=== PATIENT | female | born 1955 | race Caucasian/White ===

== ENCOUNTER → 2019-02-07 | Outpatient (CLI) | payer OTHER, SELFPAY ==
[2019-02-07 13:25] LABS: AST(SGOT) 20 U/L (15-37); Alanine Aminotransfer ALT/SGPT 38 U/L (13-56); Albumin, Serum 3.7 g/dL (3.2-5.0); Alkaline Phosphatase 145 U/L (45-117); Bilirubin, Direct 0.08 mg/dL (0.00-0.30); Globulin 3.1 g/dL (2.2-4.2); Protein, Total 6.8 g/dL (6.4-8.2)
[2019-02-11 15:45] LABS: Alpha Antitrypsin Serum 111 mg/dL (90-200)
== END | disposition home or self-care (01) ==
LOC: LABSPEC 12:32
DX: K76.9 Liver disease, unspecified (principal)
CPT/HCPCS: 80076; 82103; 82104

== ENCOUNTER → 2019-08-06 | Outpatient (CLI) | payer OTHER, SELFPAY ==
[2019-08-06 12:16] LABS: Vitamin D,25 Hydroxy 14.8 ng/mL
== END | disposition home or self-care (01) ==
LOC: LABSPEC 09:50
PROVIDERS: Visit Provider Internal Medicine
DX: E55.9 Vitamin D deficiency, unspecified (principal)
CPT/HCPCS: 82306

== ENCOUNTER → 2020-07-20 | Outpatient (CLI) | payer OTHER, SELFPAY ==
[2020-07-20 11:00] LABS: PTHIN 133.5 pg/mL (18.4-80.1)
[2020-07-20 11:04] LABS: Vitamin D,25 Hydroxy 43.9 ng/mL
== END | disposition home or self-care (01) ==
LOC: LABSPEC 07-22 13:00
PROVIDERS: PCP Student in an Organized Health Care Education/Training Program; Visit Provider Student in an Organized Health Care Education/Training Program
DX: E55.9 Vitamin D deficiency, unspecified (principal); N25.81 Secondary hyperparathyroidism of renal origin; R74.8 Abnormal levels of other serum enzymes; Z13.6 Encounter for screening for cardiovascular disorders
CPT/HCPCS: 36415; 82306; 83970

== ENCOUNTER → 2020-09-22 | Outpatient (CLI) | payer OTHER, SELFPAY ==
[2020-09-22 09:21] LABS: PTHIN 121.2 pg/mL (18.4-80.1)
[2020-09-22 09:23] LABS: AST(SGOT) 18 U/L (15-37); Alanine Aminotransfer ALT/SGPT 37 U/L (13-56); Albumin, Serum 3.6 g/dL (3.2-5.0); Alkaline Phosphatase 132 U/L (45-117); Anion Gap 3 (5-15); BUN 15 mg/dL (7-18); Calcium,Total 8.7 mg/dL (8.5-10.1); Chloride 107 mmol/L (98-107); EST Glomerular Filtration Rate 59 mL/min (>60); Est Glom Filt Rate - Afr Amer 71 mL/min (>60); Globulin 3.7 g/dL (2.2-4.2); Glucose 93 mg/dL (74-106); Magnesium 2.5 mg/dL (1.6-2.6); Phosphorus 3.2 mg/dL (2.5-4.9); Potassium 3.8 mmol/L (3.5-5.1); Protein, Total 7.3 g/dL (6.4-8.2); Sodium Level 139 mmol/L (136-145)
== END | disposition home or self-care (01) ==
LOC: LABSPEC 08:53
PROVIDERS: PCP Student in an Organized Health Care Education/Training Program; Referring Provider Student in an Organized Health Care Education/Training Program; Visit Provider Student in an Organized Health Care Education/Training Program
DX: R79.89 Other specified abnormal findings of blood chemistry (principal); R74.8 Abnormal levels of other serum enzymes
CPT/HCPCS: 80053; 82306; 82330; 83735; 83970; 84100

== ENCOUNTER → 2021-01-13 | Outpatient (CLI) | payer OTHER, SELFPAY ==
[2021-01-13 09:47] LABS: Progesterone Level 4.93 ng/mL (See Comment); Vitamin D,25 Hydroxy 30.4 ng/mL
[2021-01-13 09:52] LABS: Albumin, Serum 3.6 g/dL (3.2-5.0); BUN 18 mg/dL (7-18); Calcium,Total 8.9 mg/dL (8.5-10.1); Chloride 102 mmol/L (98-107); EST Glomerular Filtration Rate 59 mL/min (>60); Est Glom Filt Rate - Afr Amer 71 mL/min (>60); Estradiol 21.1 pg/mL; Free T3 2.3 pg/mL (2.18-3.98); Glucose 88 mg/dL (74-106); Phosphorus 3.4 mg/dL (2.5-4.9); Potassium 3.7 mmol/L (3.5-5.1); Sodium Level 140 mmol/L (136-145); T4 Free Direct 0.78 ng/dL (0.76-1.46); Thyroid Stim Hormone (TSH) 1.45 uIU/mL (0.358-3.74)
[2021-01-13 11:19] LABS: PTHIN 66.4 pg/mL (18.4-80.1)
== END | disposition home or self-care (01) ==
PROVIDERS: PCP Student in an Organized Health Care Education/Training Program; Visit Provider Student in an Organized Health Care Education/Training Program
DX: E21.3 Hyperparathyroidism, unspecified (principal)
CPT/HCPCS: 80069; 82306; 82670; 83970; 84144; 84403; 84439; 84443; 84481

== ENCOUNTER → 2021-04-05 | Outpatient (CLI) | payer OTHER, SELFPAY ==
[2021-04-05 09:56] LABS: PTHIN 80.9 pg/mL (18.4-80.1); Progesterone Level 4.84 ng/mL (See Comment); Vitamin D,25 Hydroxy 31.8 ng/mL
[2021-04-05 10:01] LABS: ALB/GLOB Ratio 0.9 RATIO (0.9-2.4); AST(SGOT) 21 U/L (15-37); Alanine Aminotransfer ALT/SGPT 31 U/L (13-56); Albumin, Serum 3.4 g/dL (3.2-5.0); Alkaline Phosphatase 119 U/L (45-117); Anion Gap 10 (5-15); BUN 14 mg/dL (7-18); BUN/Creat Ratio 13.2 RATIO (10-20); Calcium,Total 9.1 mg/dL (8.5-10.1); Chloride 104 mmol/L (98-107); Creatinine, Serum 1.06 mg/dL (0.55-1.02); EST Glomerular Filtration Rate 55 mL/min (>60); Est Glom Filt Rate - Afr Amer 67 mL/min (>60); Free T3 2.9 pg/mL (2.18-3.98); Globulin 3.8 g/dL (2.2-4.2); Glucose 99 mg/dL (74-106); Magnesium 2.4 mg/dL (1.6-2.6); Phosphorus 2.8 mg/dL (2.5-4.9); Protein, Total 7.2 g/dL (6.4-8.2); Sodium Level 140 mmol/L (136-145); Thyroid Stim Hormone (TSH) 1.16 uIU/mL (0.358-3.74)
== END | disposition home or self-care (01) ==
LOC: LABSPEC 09:23
PROVIDERS: PCP Student in an Organized Health Care Education/Training Program; Referring Provider Student in an Organized Health Care Education/Training Program; Visit Provider Student in an Organized Health Care Education/Training Program
DX: E21.3 Hyperparathyroidism, unspecified (principal); E55.9 Vitamin D deficiency, unspecified; E83.42 Hypomagnesemia
CPT/HCPCS: 80053; 82306; 82670; 83735; 83970; 84100; 84144; 84443; 84481

== ENCOUNTER 2021-07-19 12:25 | Outpatient (CLI) | payer OTHER, SELFPAY ==
[2021-07-19 11:04] LABS: PTHIN 58.9 pg/mL (18.4-80.1)
[2021-07-19 11:08] LABS: Vitamin D,25 Hydroxy 46.2 ng/mL
[2021-07-19 11:34] LABS: ALB/GLOB Ratio 1.1 RATIO (0.9-2.4); AST(SGOT) 18 U/L (15-37); Alanine Aminotransfer ALT/SGPT 31 U/L (13-56); Albumin, Serum 3.8 g/dL (3.2-5.0); Alkaline Phosphatase 130 U/L (45-117); Anion Gap 7 (5-15); BUN 22 mg/dL (7-18); BUN/Creat Ratio 17.7 RATIO (10-20); Calcium,Total 9.3 mg/dL (8.5-10.1); Chloride 103 mmol/L (98-107); Creatinine, Serum 1.24 mg/dL (0.55-1.02); EST Glomerular Filtration Rate 46 mL/min (>60); Est Glom Filt Rate - Afr Amer 56 mL/min (>60); Estradiol 48.2 pg/mL; Free T3 3.1 pg/mL (2.18-3.98); Globulin 3.5 g/dL (2.2-4.2); Glucose 97 mg/dL (74-106); Potassium 4.1 mmol/L (3.5-5.1); Protein, Total 7.3 g/dL (6.4-8.2); Sodium Level 137 mmol/L (136-145); T4 Free Direct 0.82 ng/dL (0.76-1.46); Thyroid Stim Hormone (TSH) 1.19 uIU/mL (0.358-3.74)
[2021-07-21 15:08] LABS: Alkaline Phosphatase, Serum 132 IU/L (44-121); Bone Fraction 22 % (14-68); Liver Fraction 74 % (18-85)
[2021-07-21 16:49] LABS: Intestinal Fraction 4 % (0-18)
== END 2021-07-19 23:59 | disposition home or self-care (01) ==
LOC: LAB.FUTURE 12:25
PROVIDERS: Visit Provider Internal Medicine Endocrinology, Diabetes & Metabolism
DX: E03.8 Other specified hypothyroidism (principal); E21.1 Secondary hyperparathyroidism, not elsewhere classified; N95.1 Menopausal and female climacteric states; E55.9 Vitamin D deficiency, unspecified; E83.39 Other disorders of phosphorus metabolism
CPT/HCPCS: 36415; 80053; 82306; 82670; 83970; 84075; 84080; 84439; 84443; 84481

== ENCOUNTER 2021-08-17 12:56 | Outpatient (CLI) | payer OTHER, SELFPAY ==
[2021-08-17 13:39] LABS: Anion Gap 7 (5-15); BUN 12 mg/dL (7-18); BUN/Creat Ratio 11.4 RATIO (10-20); Calcium,Total 8.6 mg/dL (8.5-10.1); Chloride 105 mmol/L (98-107); Creatinine, Serum 1.05 mg/dL (0.55-1.02); EST Glomerular Filtration Rate 56 mL/min (>60); Est Glom Filt Rate - Afr Amer 67 mL/min (>60); Glucose 80 mg/dL (74-106); Potassium 3.9 mmol/L (3.5-5.1); Sodium Level 137 mmol/L (136-145)
== END 2021-08-17 23:59 | disposition home or self-care (01) ==
PROVIDERS: Referring Provider Student in an Organized Health Care Education/Training Program; Visit Provider Student in an Organized Health Care Education/Training Program
DX: E21.1 Secondary hyperparathyroidism, not elsewhere classified (principal); I10 Essential (primary) hypertension
CPT/HCPCS: 80048

== ENCOUNTER 2021-08-22 08:28 | Outpatient (CLI) | payer OTHER, SELFPAY ==
[2021-08-22 09:54] LABS: 24HR. Urine Creatinine 1.19 g/24 HR (0.70-1.90)
[2021-08-29 21:38] LABS: 5-HIAA, UR 3.6 mg/L (Undefined)
== END 2021-08-22 23:59 | disposition home or self-care (01) ==
LOC: LABSPEC 08:29
PROVIDERS: Referring Provider Internal Medicine Endocrinology, Diabetes & Metabolism; Visit Provider Internal Medicine Endocrinology, Diabetes & Metabolism
DX: E21.1 Secondary hyperparathyroidism, not elsewhere classified (principal)
CPT/HCPCS: 81050; 82570; 83497

== ENCOUNTER → 2021-12-27 | Outpatient (CLI) | payer OTHER, SELFPAY ==
[2021-12-27 15:29] LABS: Hematocrit 37.8 % (37-47); Hemoglobin 12.4 g/dL (12.0-15.0); Mean Corp Hgb Conc 32.8 g/dL (32-36); Mean Corpuscular Hgb 32.6 pg (27.0-32.0); Mean Corpuscular Volume 99.5 fL (81-99); Mean Platelet Vol. 10.6 fl (6.2-12.0); Platelet Count 291 K/mm3 (150-450); RBC Distribution Width CV 12.3 % (11.6-14.6); RBC Distribution Width SD 45.1 fl (35.1-43.9); White Blood Count 8.4 K/mm3 (4.4-11.0)
[2021-12-27 15:59] LABS: PTHIN 77.9 pg/mL (18.4-80.1)
[2021-12-27 16:18] LABS: Microalbumin,Random Urine < 5.0 mg/L (NO RANGE EST.)
[2021-12-27 17:23] LABS: Hepatitis C Antibody Non-Reactive (Nonreactive); Progesterone Level 2.58 ng/mL (See Comment); Vitamin D,25 Hydroxy 57.9 ng/mL
[2021-12-27 21:44] LABS: BUN 15 mg/dL (7-18); BUN/Creat Ratio 13.5 RATIO (10-20); Creatinine, Serum 1.11 mg/dL (0.55-1.02); Glucose 65 mg/dL (74-106)
[2021-12-27 21:45] LABS: ALB/GLOB Ratio 1.1 RATIO (0.9-2.4); AST(SGOT) 17 U/L (15-37); Albumin, Serum 3.7 g/dL (3.2-5.0); Alkaline Phosphatase 97 U/L (45-117); Calcium,Total 8.6 mg/dL (8.5-10.1); Globulin 3.4 g/dL (2.2-4.2); Phosphorus 3.1 mg/dL (2.5-4.9); Protein, Total 7.1 g/dL (6.4-8.2)
[2021-12-27 21:46] LABS: Alanine Aminotransfer ALT/SGPT 22 U/L (13-56); Cholesterol 148 mg/dL (200); Magnesium 2.2 mg/dL (1.6-2.6); Sodium Level 135 mmol/L (136-145); Triglycerides 219 mg/dL; Very Low Density Lipoprotein 44 mg/dL (5-40)
[2021-12-27 21:47] LABS: Anion Gap 10 (5-15); Chloride 101 mmol/L (98-107); Free T3 2.4 pg/mL (2.18-3.98); High Density Lipoprotein 40 mg/dL; Potassium 3.4 mmol/L (3.5-5.1); Thyroid Stim Hormone (TSH) 0.85 uIU/mL (0.358-3.74)
[2021-12-27 22:06] LABS: EST Glomerular Filtration Rate 52 mL/min (>60); Est Glom Filt Rate - Afr Amer 63 mL/min (>60); Estradiol 14.6 pg/mL
[2021-12-28 14:19] LABS: Bilirubin, Direct 0.07 mg/dL (0.00-0.30)
[2021-12-30 22:20] LABS: Anti-Mitochondrial AB <20.0 Units (0.0-20.0)
== END | disposition home or self-care (01) ==
LOC: LABSPEC 15:10
DX: E03.8 Other specified hypothyroidism (principal); N25.81 Secondary hyperparathyroidism of renal origin; N95.1 Menopausal and female climacteric states; E55.9 Vitamin D deficiency, unspecified; I10 Essential (primary) hypertension; R74.8 Abnormal levels of other serum enzymes; Z11.59 Encounter for screening for other viral diseases
CPT/HCPCS: 80053; 80061; 82043; 82248; 82306; 82570; 82670; 83516; 83735; 83970; 84100; 84144; 84403; 84443; 84481; 85027; 86803

== ENCOUNTER → 2022-01-20 | Outpatient (CLI) | payer OTHER, SELFPAY ==
[2022-01-20 15:39] LABS: ALB/GLOB Ratio 1.1 RATIO (0.9-2.4); AST(SGOT) 17 U/L (15-37); Alanine Aminotransfer ALT/SGPT 23 U/L (13-56); Albumin, Serum 3.7 g/dL (3.2-5.0); Alkaline Phosphatase 104 U/L (45-117); Anion Gap 10 (5-15); BUN 22 mg/dL (7-18); BUN/Creat Ratio 17.7 RATIO (10-20); Calcium,Total 9.1 mg/dL (8.5-10.1); Chloride 99 mmol/L (98-107); Creatinine, Serum 1.24 mg/dL (0.55-1.02); EST Glomerular Filtration Rate 46 mL/min (>60); Est Glom Filt Rate - Afr Amer 55 mL/min (>60); Globulin 3.4 g/dL (2.2-4.2); Glucose 98 mg/dL (74-106); Protein, Total 7.1 g/dL (6.4-8.2); Sodium Level 132 mmol/L (136-145); T4 Free Direct 0.96 ng/dL (0.76-1.46); Thyroid Stim Hormone (TSH) 1.03 uIU/mL (0.358-3.74)
== END | disposition home or self-care (01) ==
LOC: LABSPEC 14:50
PROVIDERS: PCP Student in an Organized Health Care Education/Training Program; Referring Provider Student in an Organized Health Care Education/Training Program; Visit Provider Student in an Organized Health Care Education/Training Program
DX: E21.1 Secondary hyperparathyroidism, not elsewhere classified (principal); E87.6 Hypokalemia
CPT/HCPCS: 80053; 84439; 84443

== ENCOUNTER → 2022-07-17 | Outpatient (CLI) | payer OTHER, SELFPAY ==
[2022-07-17 11:57] LABS: Microalbumin,Random Urine 8.7 mg/L (NO RANGE EST.)
== END | disposition home or self-care (01) ==
LOC: LABSPEC 11:15
PROVIDERS: PCP Nurse Practitioner Women's Health; Referring Provider Student in an Organized Health Care Education/Training Program; Visit Provider Student in an Organized Health Care Education/Training Program
DX: I10 Essential (primary) hypertension (principal)
CPT/HCPCS: 82043

== ENCOUNTER → 2022-07-18 | Outpatient (CLI) | payer OTHER, SELFPAY ==
[2022-07-18 10:16] LABS: Hematocrit 41.2 % (37-47); Hemoglobin 13.1 g/dL (12.0-15.0); Mean Corp Hgb Conc 31.8 g/dL (32-36); Mean Corpuscular Hgb 32.3 pg (27.0-32.0); Mean Corpuscular Volume 101.5 fL (81-99); Platelet Count 305 K/mm3 (150-450); RBC Distribution Width CV 12.8 % (11.6-14.6); RBC Distribution Width SD 47.9 fl (35.1-43.9); Red Blood Count 4.06 M/mm3 (4.2-5.4); White Blood Count 8.4 K/mm3 (4.4-11.0)
[2022-07-18 10:38] LABS: PTHIN 78.5 pg/mL (18.4-80.1)
[2022-07-18 10:42] LABS: Progesterone Level 6.24 ng/mL (See Comment); Vitamin D,25 Hydroxy 70.1 ng/mL
[2022-07-18 14:40] LABS: ALB/GLOB Ratio 1.1 RATIO (0.9-2.4); AST(SGOT) 15 U/L (15-37); Alanine Aminotransfer ALT/SGPT 21 U/L (13-56); Albumin, Serum 3.7 g/dL (3.2-5.0); Alkaline Phosphatase 92 U/L (45-117); Anion Gap 12 (5-15); BUN 16 mg/dL (7-18); Calcium,Total 8.9 mg/dL (8.5-10.1); Chloride 98 mmol/L (98-107); Cholesterol 141 mg/dL (200); Creatinine, Serum 1.23 mg/dL (0.55-1.02); EST Glomerular Filtration Rate 46 mL/min (>60); Est Glom Filt Rate - Afr Amer 56 mL/min (>60); Estradiol 16.7 pg/mL; Globulin 3.4 g/dL (2.2-4.2); Glucose 69 mg/dL (74-106); High Density Lipoprotein 55 mg/dL; Magnesium 2.2 mg/dL (1.6-2.6); Potassium 3.4 mmol/L (3.5-5.1); Protein, Total 7.1 g/dL (6.4-8.2); Sodium Level 133 mmol/L (136-145); T4 Free Direct 0.91 ng/dL (0.76-1.46); Thyroid Stim Hormone (TSH) 1.05 uIU/mL (0.358-3.74); Triglycerides 147 mg/dL; Very Low Density Lipoprotein 29 mg/dL (5-40)
[2022-07-18 17:13] LABS: Vitamin B12 1142 pg/mL (211-911)
== END | disposition home or self-care (01) ==
LOC: LABSPEC 11:55
PROVIDERS: PCP Nurse Practitioner Women's Health; Referring Provider Student in an Organized Health Care Education/Training Program; Visit Provider Internal Medicine Endocrinology, Diabetes & Metabolism
DX: E21.1 Secondary hyperparathyroidism, not elsewhere classified (principal); E55.9 Vitamin D deficiency, unspecified; E03.9 Hypothyroidism, unspecified; N95.1 Menopausal and female climacteric states; I10 Essential (primary) hypertension; Z13.6 Encounter for screening for cardiovascular disorders
CPT/HCPCS: 36415; 80053; 80061; 82306; 82607; 82670; 82746; 83735; 83970; 84144; 84403; 84439; 84443; 84481; 85027

== ENCOUNTER → 2023-01-15 | Outpatient (CLI) | payer OTHER, SELFPAY ==
[2023-01-15 13:38] LABS: Creatinine, Urine (random) < 13.00 mg/dL (NO RANGE EST.); Microalbumin,Random Urine < 5.0 mg/L (NO RANGE EST.)
== END | disposition home or self-care (01) ==
LOC: LABSPEC 12:43
PROVIDERS: PCP Nurse Practitioner Women's Health; Referring Provider Student in an Organized Health Care Education/Training Program; Visit Provider Student in an Organized Health Care Education/Training Program
DX: R94.4 Abnormal results of kidney function studies (principal)
CPT/HCPCS: 82043; 82570

== ENCOUNTER → 2023-01-18 | Outpatient (CLI) | payer OTHER, SELFPAY ==
[2023-01-18 08:23] LABS: Hematocrit 41.4 % (37-47); Hemoglobin 13.3 g/dL (12.0-15.0); Mean Corp Hgb Conc 32.1 g/dL (32-36); Mean Corpuscular Hgb 32.7 pg (27.0-32.0); Mean Corpuscular Volume 101.7 fL (81-99); Mean Platelet Vol. 9.8 fl (6.2-12.0); Platelet Count 269 K/mm3 (150-450); RBC Distribution Width CV 12.7 % (11.6-14.6); RBC Distribution Width SD 47.8 fl (35.1-43.9); Red Blood Count 4.07 M/mm3 (4.2-5.4); White Blood Count 9.5 K/mm3 (4.4-11.0)
[2023-01-18 09:05] LABS: PTHIN 118.8 pg/mL (18.4-80.1)
[2023-01-18 09:11] LABS: ALB/GLOB Ratio 0.9 RATIO (0.9-2.4); AST(SGOT) 20 U/L (15-37); Alanine Aminotransfer ALT/SGPT 32 U/L (13-56); Albumin, Serum 3.5 g/dL (3.2-5.0); Alkaline Phosphatase 110 U/L (45-117); Anion Gap 6 (5-15); BUN 14 mg/dL (7-18); BUN/Creat Ratio 11.7 RATIO (10-20); Calcium,Total 8.9 mg/dL (8.5-10.1); Chloride 106 mmol/L (98-107); Cholesterol 164 mg/dL (200); EST Glomerular Filtration Rate 47 mL/min (>60); Est Glom Filt Rate - Afr Amer 57 mL/min (>60); Estradiol 57.1 pg/mL; Free T3 2.4 pg/mL (2.18-3.98); Globulin 3.9 g/dL (2.2-4.2); Glucose 105 mg/dL (74-106); High Density Lipoprotein 49 mg/dL; Magnesium 2.2 mg/dL (1.6-2.6); Potassium 4.3 mmol/L (3.5-5.1); Protein, Total 7.4 g/dL (6.4-8.2); Sodium Level 138 mmol/L (136-145); T4 Free Direct 0.73 ng/dL (0.76-1.46); Thyroid Stim Hormone (TSH) 1.28 uIU/mL (0.358-3.74); Triglycerides 186 mg/dL; Very Low Density Lipoprotein 37 mg/dL (5-40)
[2023-01-18 09:12] LABS: Progesterone Level 3.76 ng/mL (See Comment)
[2023-01-19 04:07] LABS: DHEA Sulfate 27.4 ug/dL (20.4-186.6)
== END | disposition home or self-care (01) ==
PROVIDERS: PCP Student in an Organized Health Care Education/Training Program; Referring Provider Nurse Practitioner Women's Health; Visit Provider Nurse Practitioner Women's Health
DX: N95.1 Menopausal and female climacteric states (principal); E21.1 Secondary hyperparathyroidism, not elsewhere classified; E03.8 Other specified hypothyroidism; R53.81 Other malaise; E55.9 Vitamin D deficiency, unspecified; R94.4 Abnormal results of kidney function studies; I10 Essential (primary) hypertension; Z13.6 Encounter for screening for cardiovascular disorders
CPT/HCPCS: 36415; 80053; 80061; 82306; 82627; 82670; 83735; 83970; 84144; 84403; 84439; 84443; 84481; 85027; 82626

== ENCOUNTER → 2023-03-02 | Outpatient (CLI) | payer OTHER, SELFPAY ==
[2023-03-02 13:32] LABS: (24 HR) Urine Calcium 165.1 mg/24 HR (42.0-353.0); 24HR UR TOTAL VOLUME 1300 ml; 24Hr.Lytes Total Volume 1300 mL; Calcium Urine pH Range 1; Sodium 24 HR UR 65 mmol/24h (40-220); Urine Calcium (Random) 12.7 (Not Estab.); Urine Sodium 50 mmol/L (Not Establ.)
== END | disposition home or self-care (01) ==
LOC: LABSPEC 12:23
PROVIDERS: PCP Student in an Organized Health Care Education/Training Program; Referring Provider Internal Medicine Endocrinology, Diabetes & Metabolism; Visit Provider Internal Medicine Endocrinology, Diabetes & Metabolism
DX: E21.1 Secondary hyperparathyroidism, not elsewhere classified (principal); N18.31 Chronic kidney disease, stage 3a
CPT/HCPCS: 82340; 82570; 84300

== ENCOUNTER → 2023-03-12 | Outpatient (CLI) | payer OTHER, SELFPAY ==
[2023-03-12 13:01] LABS: Anion Gap 7 (5-15); BUN 15 mg/dL (7-18); BUN/Creat Ratio 10.6 RATIO (10-20); Calcium,Total 8.7 mg/dL (8.5-10.1); Chloride 105 mmol/L (98-107); Creatinine, Serum 1.42 mg/dL (0.55-1.02); EST Glomerular Filtration Rate 39 mL/min (>60); Est Glom Filt Rate - Afr Amer 47 mL/min (>60); Glucose 59 mg/dL (74-106); Potassium 3.9 mmol/L (3.5-5.1); Sodium Level 138 mmol/L (136-145)
== END | disposition home or self-care (01) ==
LOC: LABSPEC 12:12
PROVIDERS: PCP Student in an Organized Health Care Education/Training Program; Referring Provider Internal Medicine Endocrinology, Diabetes & Metabolism; Visit Provider Internal Medicine Endocrinology, Diabetes & Metabolism
DX: E21.1 Secondary hyperparathyroidism, not elsewhere classified (principal); N18.31 Chronic kidney disease, stage 3a
CPT/HCPCS: 80048

== ENCOUNTER → 2023-04-24 | Outpatient (CLI) | payer OTHER, SELFPAY ==
[2023-04-24 10:22] LABS: AST(SGOT) 20 U/L (15-37); Alanine Aminotransfer ALT/SGPT 26 U/L (13-56); Albumin, Serum 3.7 g/dL (3.2-5.0); Alkaline Phosphatase 105 U/L (45-117); Anion Gap 6 (5-15); BUN 21 mg/dL (7-18); BUN/Creat Ratio 17.2 RATIO (10-20); Calcium,Total 9.1 mg/dL (8.5-10.1); Chloride 106 mmol/L (98-107); Creatinine, Serum 1.22 mg/dL (0.55-1.02); EST Glomerular Filtration Rate 47 mL/min (>60); Est Glom Filt Rate - Afr Amer 56 mL/min (>60); Globulin 3.6 g/dL (2.2-4.2); Glucose 93 mg/dL (74-106); Magnesium 2.3 mg/dL (1.6-2.6); Potassium 4.3 mmol/L (3.5-5.1); Protein, Total 7.3 g/dL (6.4-8.2); Sodium Level 137 mmol/L (136-145)
[2023-04-24 10:33] LABS: Vitamin D,25 Hydroxy 76.6 ng/mL
[2023-04-24 10:40] LABS: PTHIN 44.3 pg/mL (18.4-80.1)
== END | disposition home or self-care (01) ==
PROVIDERS: PCP Student in an Organized Health Care Education/Training Program; Visit Provider Internal Medicine Endocrinology, Diabetes & Metabolism
DX: E21.1 Secondary hyperparathyroidism, not elsewhere classified (principal); M85.89 Other specified disorders of bone density and structure, multiple sites; E55.9 Vitamin D deficiency, unspecified
CPT/HCPCS: 80053; 82306; 83735; 83970

== ENCOUNTER → 2023-07-26 | Outpatient (CLI) | payer OTHER, SELFPAY ==
[2023-07-26 10:59] LABS: Hematocrit 40.6 % (37-47); Mean Corpuscular Hgb 32.1 pg (27.0-32.0); Mean Corpuscular Volume 100.2 fL (81-99); Mean Platelet Vol. 10.4 fl (6.2-12.0); Platelet Count 289 K/mm3 (150-450); RBC Distribution Width CV 12.5 % (11.6-14.6); RBC Distribution Width SD 46.1 fl (35.1-43.9); Red Blood Count 4.05 M/mm3 (4.2-5.4); White Blood Count 8.7 K/mm3 (4.4-11.0)
[2023-07-26 11:13] LABS: Vitamin D,25 Hydroxy 64.9 ng/mL
[2023-07-26 11:15] LABS: ALB/GLOB Ratio 1.1 RATIO (0.9-2.4); AST(SGOT) 20 U/L (15-37); Alanine Aminotransfer ALT/SGPT 29 U/L (13-56); Albumin, Serum 3.7 g/dL (3.2-5.0); Alkaline Phosphatase 102 U/L (45-117); Anion Gap 0 (5-15); BUN 17 mg/dL (7-18); BUN/Creat Ratio 14.5 RATIO (10-20); Calcium,Total 9.2 mg/dL (8.5-10.1); Chloride 105 mmol/L (98-107); Cholesterol 158 mg/dL (200); Creatinine, Serum 1.17 mg/dL (0.55-1.02); EST Glomerular Filtration Rate 49 mL/min (>60); Est Glom Filt Rate - Afr Amer 59 mL/min (>60); Globulin 3.5 g/dL (2.2-4.2); Glucose 81 mg/dL (74-106); High Density Lipoprotein 53 mg/dL; Magnesium 2.2 mg/dL (1.6-2.6); Potassium 4.1 mmol/L (3.5-5.1); Protein, Total 7.2 g/dL (6.4-8.2); Sodium Level 137 mmol/L (136-145); Triglycerides 150 mg/dL; Very Low Density Lipoprotein 30 mg/dL (5-40)
--- OUTSIDE RECORDS SUMMARY | 2023-07-26 11:33 | XMS RPT_ITS | CCD ---
Author Name Unknown Address [email or web address] [place] [address] Organization [facility] Care Team Providers Care Rehabilitation Therapy Technician Name Role Phone REINALDO MARIN DO Primary Care Physician [phone] Festus FUNG MD, Michael Primary Care Provider [phone] REINALDO MARIN IV Primary Care Unavailable VAN ANTUNEZ Referring Unavailable REINALDO MARIN IV Primary Care Unavailable VAN ANTUNEZ Referring Unavailable VAN ANTUNEZ Attending Unavailable LUCY CANUT Attending Unavailable REINALDO MARIN DO Primary Care Unavailable Allergies Allergy Classification Reported Allergen(s) Allergy Type Date of Onset Reaction(s) Facility (3 sources) Amoxicillin / Clavulanate; Translations: [amoxicillin-cla vulanate] Drug Allergy Nausea (finding) [facility] Work Phone: Medications Current Medications Medication Drug Class(es) Dates Sig (Normalized) Sig (Original) 24 hr buPROPion hydrochloride 300 mg extended release oral tablet (4 sources) Aminoketone Start: 04-12-2020 Wellbutrin use buPROPion Dose : 300 mg =, Oral, 0 Refill(s) Start Date: 04/12/20 Status: Ordered Completed/Discontinued Medications Medication Drug Class(es) Dates Sig (Normalized) Sig (Original) ascorbic acid 500 mg oral tablet (1 source) Vitamin C take 1 tablet by anmol th once daily ascorbic acid, vitamin C, (VITAMIN C) 500 mg tablet Take 500 mg by mouth once daily. 0 Active Problems Active Problems Problem Classification Problem Date Documented Date Episodic/Chronic Adjustment disorders (3 sources) Grief finding 04-12-2020 Chronic Asthma (3 sources) Mild intermittent asthma 04-13-2020 Chronic Chronic kidney disease (1 source) Chronic kidney disease stage 3A 07-31-2022 Chronic Chronic obstructive pulmonary disease and bronchiectasis (3 sources) Bronchitis 05-01-2020 Episodic Diverticulosis and diverticulitis (3 sources) Diverticulitis 04-12-2020 Chronic Esophageal disorders (3 sources) Gastroesophageal reflux disease 05-01-2020 Chronic Essential hypertension (3 sources) Hypertensive disorder 08-02-2021 Chronic Fluid and electrolyte disorders (1 source) Hypokalemia 02-02-2022 Episodic Heart valve disorders (1 source) Mitral valve prolapse; Translations: [Nonrheumatic mitral (valve) prolapse] 02-09-2021 Chronic Nutritional deficiencies (3 sources) Vitamin D deficiency 04-12-2020 Chronic Osteoporosis (3 sources) Osteoporosis 04-12-2020 Chronic Other connective tissue disease (3 sources) Pain in right lower limb 02-01-2021 Episodi c Other connective tissue disease (1 source) Trochanteric bursitis 02-02-2022 Episodic Other connective tissue disease (1 source) Subscapularis tendinitis 10-06-2021 Episodi c Other endocrine disorders (3 sources) Secondary hyperparathyroidism 02-15-2021 Chronic Other hematologic conditions (1 source) MCV - raised 02-01-2022 Episodic Other liver diseases (3 sources) Alkaline phosphatase raised 10-11-2020 Episodic Other liver diseases (3 sources) Elevated liver enzymes level 04-12-2020 Episodic Other lower respiratory disease (3 sources) History of laryngospasm 05-01-2020 Episodic Other lower respiratory disease (1 source) Dyspnea; Translations: [Shortness of breath] 02-09-2021 Episodic Other non-epithelial cancer of skin (3 sources) Basal cell carcinoma of skin 04-12-2020 Episodic Other nutritional; endocrine; and metabolic disorders (3 sources) Hypercalcemia 04-12-2020 Chronic Other nutritional; endocrine; and metabolic disorders (3 sources) Obesity 04-12-2020 Chronic Other nutritional; endocrine; and metabolic disorders (1 source) Body mass index 30+ - obesity 02-02-2022 Chronic Other nutritional; endocrine; and metabolic disorders (1 source) Hypomagnesemia 07-31-2022 Chronic Other screening for suspected conditions (not mental disorders or infectious disease) (1 source) Viral screening status 10-06-2021 Episodic Other upper respiratory disease (3 sources) Chronic rhinitis 04-12-2020 Chronic Residual codes; unclassified (3 sources) Postmenopausal state 02-01-2021 Episodic Residual codes; unclassified (2 sources) Past history of procedure; Translations: [Personal history of other medical treatment] Onset: 8 Episodic Residual codes; unclassified (2 sources) Non-smoker; Translations: [Other specified health status] Onset: 1 Episodic Residual codes; unclassified (1 source) History of palpitations; Translations: [Personal history of other specified conditions] Onset: 2 02-16-2022 Episodic Screening and history of mental health and substance abuse codes (1 source) Tobacco use and exposure - finding 07-31-2022 Chronic Thyroid disorders (1 source) Hypothyroidism 07-31-2022 Chronic Unclassified (2 sources) Glomerular filtration rate decreased 08-02-2021 Viral infection (3 sources) Herpes zoster 04-12-2020 Episodic Past or Other Problems Problem Classification Problem Date Documented Da te Episodic/Chronic Cardiac dysrhythmias (3 sources) Palpitations; Translations: [Palpitations] Onset: 02-09-2021 Episodic Nonspecific chest pain (2 sources) Chest pain; Translations: [Chest pain, unspecified] Onset: 02-09-2021 02-09-2021 Episodic Other lower respiratory disease (1 source) Shortness of breath; Translations: [SOB (shortness of breath)] Onset: 02-09-2021 Episodic Residual codes; unclassified (1 source) Other specified health status; Translations: [Non-smoker] Onset: 02-11-2021 Episodic Residual codes; unclassified (1 source) Personal history of other medical treatment; Translations: [History of echocardiogram] Onset: 02-09-2021 Episodic Results Test Name Value Interpretation Reference Range Facil ity Vital Signs Date Time Vital Sign Value Performing Clinician Yany walker 02-17-2022 08:03-0400 Body height 165.1 cm [employer] Work Phone: [facility] 02-17-2022 08:03-0400 Body weight 81.19 kg [employer] Work Phone: [facility] 02-17-2022 08:03-0400 Diastolic blood pressure 84 mm[Hg] Imbler Gross DO Work Phone: [facility] 02-17-2022 08:03-0400 Heart rate 87 /min Van Antunez DO Work Phone: [facility] 02-17-2022 08:03-0400 Systolic blood pressure 122 mm[Hg] Van Antunez DO Work Phone: [facility] Encounters Encounter Date Encounter Type Care Provider Facility Start: 09-28-2022 End: 09-29-2022 ambulatory LUCY ALONDRA Facility:B Start: 09-28-2022 End: 09-28-2022 Patient encounter procedure LUCY CANTU DO [facility] Start: 02-17-2022 End: 02-17-2022 ambulatory REINALDO RONALDORANJITH FUNG Facility:[facility] Start: 02-17-2022 End: 02-17-2022 Patient encounter procedure Van Antunez DO Work Phone: [facility] Procedures Date Procedure Procedure Detail Performing Clinician Start: 02-09-1955 Tonsillectomy REINALDO ABDUL DO Plan of Treatment Date Care Activity Detail Author Start: 02-09-2022 Influenza vaccination INFLUENZA (#1) [facility] Start: 09-16-2021 COVID-19 VACCINE (4 - Booster for Moderna series) COVID-19 VACCINE (4 - Booster for Moderna series) [facility] Start: 06-11-2021 ADVANCE DIRECTIVE DISCUSSION ADVANCE DIRECTIVE DISCUSSION [facility] Start: 09-15-2019 BONE DENSITY BONE DENSITY [facility] Start: 09-15-2019 PNEUMOCOCCAL: 65+ (1 - PCV) PNEUMOCOCCAL: 65+ (1 - PCV) [facility] Start: 2004 SHINGRIX VACCINE (1 of 2) SHINGRIX VACCINE (1 of 2) [facility] Start: 09-15-1999 COLOGUARD (FIT-DNA) COLOGUARD (FIT-DNA) [facility] Start: 09-15-1999 Colonoscopy COLONOSCOPY [facility] Start: 09-15-1999 COLORECTAL CANCER SCREENING COLORECTAL CANCER SCREENING [facility] Start: 09-15-[address] COLONOGRAPHY [facility] Start: 09-15-1999 DIABETES SCREEN DIABETES SCREEN [facility] Start: 09-15-1999 FECAL OCCULT BLOOD FECAL OCCULT BLOOD [facility] Start: 09-15-1999 LIPID SCREEN LIPID SCREEN [facility] Start: 09-15-1999 SIGMOIDOSCOPY SIGMOIDOSCOPY [facility] Start: 1994 Mammography MAMMOGRAM [facility] Start: 1973 Urine microalbumin profile DTAP,TDAP,TD (1 - Tdap) [facility] Start: 1972 HEPATITIS C SCREENING HEPATITIS C SCREENING [facility] Start: 1966 Adult depression screening assessment DEPRESSION SCREENING [facility] ECG COMPLETE ECG COMPLETE ECG Routine 02/17/2022 8:03 AM EDT [facility] Work Phone: [facility] Immunizations Immunization Date Immunization Notes Care Provider Fa cility 04-18-2022 [id number] ([id number] bival sana 1 LUCY CANTU DO [facility] Payers Date Payer Category Payer Unknown MMO M[employer] [id number] 2019-Present [phone] [address] [address] [place] [address] Indemnity [id number] 2019 Unknown [id number] 1955 Unknown [id number] Social History Date Type Detail Facility Start: 01-19-2020 End: 04-12-2020 Never smoked tobacco (finding) [facility] Sex Assigned At Female [facility] Start: 01-19-2020 Tobacco use and exposure Smokeless tobacco non-user [facility] Start: 02-17-2022 Alcohol intake Ex-drinker (finding) [facility] Start: 1955 Sex Assigned At Not on file [facility] Start: 02-07-2022 End: 02-17-2022 Exposure to SARS-CoV-2 (event) Not sure [facility] Progress note 02-17-2022 Note Date & Type Note Facility 02-17-2022 Note HNO ID: [id number] Author: Van Antunez DO Service: ? Author Type: Physician Type: Progress Notes Filed: 02/17/2022 4:06 PM Note Text: Referring Provider: Van Antunez DO Date: February 17, 2022 Chief Complaint: Established Patient Follow-Up (MVP) HISTORY OF PRESENT ILLNESS: Elizabeth Eckert is a 66 year old female who presents for Established Patient Follow-Up (MVP). ALLERGIES No Known Allergies PAST MEDICAL HISTORY: PAST MEDICAL HISTORY Diagnosis Date Chest pain Diverticulitis Dyspnea History of echocardiogram 10/03/2017 EF 60-65% grade 1 diastolic dysfunction trivial TR AND MR, aortic thickening consistent with sclerosis, MVP (mitral valve prolapse) Palpitations Secondary hyperparathyroidism (HCC) SOB (shortness of breath) Thrush Yeast infection History reviewed. No pertinent surgical history. FAMILY HISTORY Problem Relation Age of Onset Heart Attack Father SOCIAL HISTORY: Tobacco Use: Never Alcohol Use: Not Currently Drug Use: Not on file Employer And Job Title: None on file Years Of Education Completed: Not specified Marital Status: Single MEDICATIONS: Current Outpatient Medications Medication Sig lisinopril (ZESTRIL, PRINIVIL) 5 mg tablet Take 5 mg by mouth once daily. compounded progesterone 100 mg capsule Take 100 mg by mouth daily at bedtime. ARMOUR THYROID 30 mg tablet Take 30 mg by mouth once daily. buPROPion XL (WELLBUTRIN XL) 300 mg 24 hr tablet Take 300 mg by mouth once daily. calcium carbonate (CALCIUM 500 ORAL) Take by mouth once daily. Magnesium 250 mg tab Take 250 mg by mouth. ascorbic acid, vitamin C, (VITAMIN C) 500 mg tablet Take 500 mg by mouth once daily. cholecalciferol, vitamin D3, (VITAMIN D3 ORAL) Take 50,000 Units by mouth one time a week. No current facility-administered medications for this visit. I have personally reviewed the patients past medical history including social, family, surgical, diagnostics, and medications. REVIEW OF SYSTEMS: Review of Systems Constitutional: Negative for chills and fatigue. Respiratory: Negative for chest tightness and shortness of breath. Cardiovascular: Negative for chest pain, palpitations and leg swelling. Neurological: Negative for dizziness, syncope, weakness and light-headedness. Hematological: Does not bruise/bleed easily. Psychiatric/Behavioral: Negative for confusion and hallucinations. Vitals: BP 122/84 (BP Site: Left Arm, BP Position: Sitting) Pulse 87 Ht 165.1 cm (5' 5 ) Wt 81.2 kg (179 lb) BMI 29.79 kg/m? PHYSICAL EXAMINATION: BP 122/84 (BP Site: Left Arm, BP Position: Sitting) Pulse 87 Ht 165.1 cm (5' 5 ) Wt 81.2 kg (179 lb) BMI 29.79 kg/m? Last 3 Encounter BP Readings: Date: BP: 02/11/2021 130/92 02/06/2020 130/90 Last 3 Encounter Pulse Readings: Date: Pulse: 02/11/2021 83 02/06/2020 92 Last 3 Encounter Wt Readings: Date: Wt: 02/11/2021 93.4 kg (206 lb) 02/06/2020 92.1 kg (203 lb) Physical Exam Vitals reviewed. Constitutional: General: She is not in acute distress. Cardiovascular: Rate and Rhythm: Normal rate and regular rhythm. Pulses: Carotid pulses are 2+ on the right side and 2+ on the left side. Radial pulses are 2+ on the right side and 2+ on the left side. Femoral pulses are 2+ on the right side and 2+ on the left side. Popliteal pulses are 2+ on the right side and 2+ on the left side. Dorsalis pedis pulses are 2+ on the right side and 2+ on the left side. Posterior tibial pulses are 2+ on the right side and 2+ on the left side. Heart sounds: Murmur heard. Systolic murmur is present with a grade of 2/6. Comments: PMI not displaced. 2nd heart sound loud. Pulmonary: Effort: Pulmonary effort is normal. Breath sounds: Normal breath sounds. Abdominal: General: Abdomen is flat. Bowel sounds are normal. Palpations: Abdomen is soft. Tenderness: There is no abdominal tenderness. Musculoskeletal: Right lower leg: No edema. Left lower leg: No edema. Skin: General: Skin is warm. Findings: No rash or wound. Neurological: Mental Status: She is alert and oriented to person, place, and time. Coordination: Coordination is intact. LABS: No results found for: GLUC, K, NA, CHLOR, CO2, CREAT, BUN, ANION, CA, TPROT, ALB, TBILI, ALKPHOS, AST, ALT No results found for: HB, HCT, WBC No results found for: CHOL, HDL, LDL, TG EKG: DIAGNOSTIC TEST RESULTS: Recent Results (from the past 24 hour(s)) ECG COMPLETE Collection Time: 02/17/22 8:03 AM Result Value Ref Range Ventricular Rate 87 BPM Atrial Rate 87 BPM P-R Interval 158 ms QRS Duration 70 ms QT Interval 350 ms QTC Calculation (Bazett) 421 ms Calculated P [place] 74 degrees Calculated R [place] 39 degrees Calculated T [place] 56 degrees Narrative NAME : ELIZABETH ECKERT PID : [id number] : 1955 Gender : Female Race : ORD : [id number] Procedure Date : S (more content not included)... [facility] History of Present illness Narrative 02-17-2022 Van Antunez DO - 02/17/2022 7:45 AM EDT Note Date & Type Note Facility 02-17-2022 History of Presen t illness Narrative Referring Provider: Van Antunez DO Date: February 17, 2022 Chief Complaint: Established Patient Follow-Up (MVP) HISTORY OF PRESENT ILLNESS: Elizabeth Eckert is a 66 year old female who presents for Established Patient Follow-Up (MVP). ALLERGIES No Known Allergies PAST MEDICAL HISTORY: PAST MEDICAL HISTORY Diagnosis Date Chest pain Diverticulitis Dyspnea History of echocardiogram 10/03/2017 EF 60-65% grade 1 diastolic dysfunction trivial TR & MR, aortic thickening consistent with sclerosis, MVP (mitral valve prolapse) Palpitations Secondary hyperparathyroidism (HCC) SOB (shortness of breath) Thrush Yeast infection History reviewed. No pertinent surgical history. FAMILY HISTORY Problem Relation Age of Onset Heart Attack Father SOCIAL HISTORY: Tobacco Use: Never Alcohol Use: Not Currently Drug Use: Not on file Employer And Job Title: None on file Years Of Education Completed: Not specified Marital Status: Single MEDICATIONS: Current Outpatient Medications Medication Sig lisinopril (ZESTRIL, PRINIVIL) 5 mg tablet Take 5 mg by mouth once daily. compounded progesterone 100 mg capsule Take 100 mg by mouth daily at bedtime. ARMOUR THYROID 30 mg tablet Take 30 mg by mouth once daily. buPROPion XL (WELLBUTRIN XL) 300 mg 24 hr tablet Take 300 mg by mouth once daily. calcium carbonate (CALCIUM 500 ORAL) Take by mouth once daily. Magnesium 250 mg tab Take 250 mg by mouth. ascorbic acid, vitamin C, (VITAMIN C) 500 mg tablet Take 500 mg by mouth once daily. cholecalciferol, vitamin D3, (VITAMIN D3 ORAL) Take 50,000 Units by mouth one time a week. No current facility-administered medications for this visit. I have personally reviewed the patients past medical history including social, family, surgical, diagnostics, and medications. REVIEW OF SYSTEMS: Review of Systems Constitutional: Negative for chills and fatigue. Respiratory: Negative for chest tightness and shortness of breath. Cardiovascular: Negative for chest pain, palpitations and leg swelling. Neurological: Negative for dizziness, syncope, weakness and light-headedness. Hematological: Does not bruise/bleed easily. Psychiatric/Behavioral: Negative for confusion and hallucinations. Vitals: BP 122/84 (BP Site: Left Arm, BP Position: Sitting) Pulse 87 Ht 165.1 cm (5' 5 ) Wt 81.2 kg (179 lb) BMI 29.79 kg/m PHYSICAL EXAMINATION: BP 122/84 (BP Site: Left Arm, BP Position: Sitting) Pulse 87 Ht 165.1 cm (5' 5 ) Wt 81.2 kg (179 lb) BMI 29.79 kg/m Last 3 Encounter BP Readings: Date: BP: 02/11/2021 130/92 02/06/2020 130/90 Last 3 Encounter Pulse Readings: Date: Pulse: 02/11/2021 83 02/06/2020 92 Last 3 Encounter Wt Readings: Date: Wt: 02/11/2021 93.4 kg (206 lb) 02/06/2020 92.1 kg (203 lb) Physical Exam Vitals reviewed. Constitutional: General: She is not in acute distress. Cardiovascular: Rate and Rhythm: Normal rate and regular rhythm. Pulses: Carotid pulses are 2+ on the right side and 2+ on the left side. Radial pulses are 2+ on the right side and 2+ on the left side. Femoral pulses are 2+ on the right side and 2+ on the left side. Popliteal pulses are 2+ on the right side and 2+ on the left side. Dorsalis pedis pulses are 2+ on the right side and 2+ on the left side. Posterior tibial pulses are 2+ on the right side and 2+ on the left side. Heart sounds: Murmur heard. Systolic murmur is present with a grade of 2/6. Comments: PMI not displaced. 2nd heart sound loud. Pulmonary: Effort: Pulmonary effort is normal. Breath sounds: Normal breath sounds. Abdominal: General: Abdomen is flat. Bowel sounds are normal. Palpations: Abdomen is soft. Tenderness: There is no abdominal tenderness. Musculoskeletal: Right lower leg: No edema. Left lower leg: No edema. Skin: General: Skin is warm. Findings: No rash or wound. Neurological: Mental Status: She is alert and oriented to person, place, and time. Coordination: Coordination is intact. LABS: No results found for: GLUC, K, NA, CHLOR, CO2, CREAT, BUN, ANION, CA, TPROT, ALB, TBILI, ALKPHOS, AST, ALT No results found for: HB, HCT, WBC No results found for: CHOL, HDL, LDL, TG EKG: DIAGNOSTIC TEST RESULTS: Recent Results (from the past 24 hour(s)) ECG COMPLETE Collection Time: 02/17/22 8:03 AM Result Value Ref Range Ventricular Rate 87 BPM Atrial Rate 87 BPM P-R Interval 158 ms QRS Duration 70 ms QT Interval 350 ms QTC Calculation (Bazett) 421 ms Calculated P [place] 74 degrees Calculated R [place] 39 degrees Calculated T [place] 56 degrees Narrative NAME : ELIZABETH ECKERT PID : [id number] : 1955 Gender : Female Race : ORD : [id number] Procedure Date : Feb 17 2022 08:03:28 Edit Date : Feb 17 2022 08:03:47 Diagnosis: NORMAL SINUS RHYTHM NORMAL ECG Test Reason : Location : 621 : [facility] Overread By : , Edited By : , Referred By : VAN ANTUNEZ Acquired by : , Impression NORMAL SINUS RHYTHM NORMAL ECG ASSESSMENT/PLAN: 1. Palpitations - ICD9: 785.1, ICD10: R00.2 (primary diagnosis) No complaints of palpitations at this visit. 2. History of echocardiogram - ICD9: V15.89, ICD10: Z92.89 Echo done 10/03/17 showed EF 60-65% grade 1 diastolic dysfunction trivial TR & MR, aortic thickening consistent with sclerosis, The systolic murmur is late. No heave no gallop. 3. Non-smoker - ICD9: V49.89, ICD10: Z78.9 Patient has never been a smoker. I, Yumiko Shafer , scribing for Dr. Van Antunez. Follow up in: 2 years Prior to entering the room, I reviewed the last progress note including the diagnosis and plan of action. When available, I then reviewed the last heart catheterization, stress test, echocardiogram and EKG. I proceeded to review the medial therapy and any side effects the patient may have had in the past. I was able to look at the last several EKGs. A new EKG was performed today and an interetation was performed. I reviewed its interpretation with the family and compared it to the previous EKGs that we have in the medical records. Changes were described to the patient. In a pictorial format; I described the NH and QRS intervals. This was to show the effects of antiarrhythmic therapy on the electrical system. I was able to look at the past several EKG's. A new EKG was performed today and interpretation was noted. I reviewed this interpretation with the patient, and the family when available, and compared it to the previous EKG's that we have in the medical record. Since my office visit was carried out with a scribe, while in the exam room I was able to devote one hundred percent of my time in [id number] conversation with the patient. I answered all the questions and explained the diagnosis of mitral valve prolapse mitral valve prolapse. Greater that 51% of my time was spent with [id number] conversation with the patient. I have discussed the recommended treatment, alternative therapies and other options in detail. I've discussed the best benefit and side effects of these recommended treatments. I've attempted to answer all the questions to the patient's satisfaction and understanding. With approval, we would recommend an pursue the current therapy such as no change. After leaving the exam room, I went back into the patient's chart and coordinated care with my nurse ordering the proper testing and medicinal changes. Letter was performed with voice recognition algorithms and sent to the referring team. The chart was completed. Including the pre-exam, exam and post-exam, the total time spent in the patient's management was greater than 15 minutes I, Dr. Van Antunez, have reviewed and agree with the information in the medical record. Van Antunez DO documented in this encounter [facility] Evaluation + Plan note Laboratory Note Date & Type Note Facility Evaluation + Plan note Future Appointments Appointment Date:09/28/2021 08:00:00 AM Scheduled Provider:REINALDO MARIN DO [facility] Future Scheduled TestsLipid Profile 02/16/21PTH, Intact 11/05/20Renal Function Panel 11/05/20Vitamin D Level 11/05/20 [facility] Evaluation + Plan note Laboratory Note Date & Type Note Facility Evaluation + Plan note Future Appointments Appointment Date:01/25/2024 09:00:00 AM Scheduled Provider:REINALDO MARIN DO [facility] Type:PC OV Future Scheduled TestsBasic Metabolic Panel 02/01/22Complete Blood Count 02/01/22Microalbumin Level Urine 07/09/22 [facility] Evaluation note Note Date & Type Note Facility documented in this encounter [facility] Hospital course Narrative Note Date & Type Note Facility Hospital course Narrative No data available for this section [facility] Hospital Discharge instructions Note Date & Type Note Facility Hospital Discharge instructions No data available for this section [facility] Progress note Note Date & Type Note Facility Progress note No data available for this section [facility] Reason for referral (narrative) Outpatient Procedure (Routine) - Closed Note Date & Type Note Facility Referral ID Status Reason Start Date Expiration Date V isits Requested Visits Authorized [id number] Closed Auto-Generate d Referral 02/16/2022 02/16/2023 1 1 [facility] [facility] Summary Purpose Family History No Family History Records FoundNo Family History Records FoundNo Family History Records Found Advance Directives No Advanced Directives Records FoundNo Advanced Directives Records FoundNo Advanced Directives Records Found Additional Source Comments INFORMATION SOURCE (unrecogn ized section and content) DATE CREATED AUTHOR AUTHOR'S ORGANIZ ATION 03/11/2022 [facility] DATE CREATED AUTHOR AUTHOR'S ORGANIZ ATION 10/02/2022 [facility] ([place]) Source Comments (unrecognize d section and content) In the event this informatio n is protected by the Federal Confidentiality of Alcohol and Drug Abuse Patient Records regulations: The Federal rules restrict any use of the information to criminally investigate or prosecute any alcohol or drug abuse patient.[facility] Reason for Visit (unrecogniz ed section and content) Care Teams (unrecognized sec tion and content) FOR RECORDS PERTAINING TO PATIENTS WHO ARE OR HAVE BEEN ENROLLED IN A CHEMICAL DEPENDENCY/SUBSTANCEABUSE PROGRAM, SOME INFORMATION MAY BE OMITTED. This clinical summary was aggregated from multiple sources. Caution should be exercised in using it in the provision of clinical care. This summary normalizes information from multiple sources, and as a consequence, information in this document may materially change the coding, format and clinical context of patient data. In addition, data may be omitted in some cases. CLINICAL DECISIONS SHOULD BE BASED ON THE PRIMARY CLINICAL RECORDS. [facility] [employer] [facility]. provides no warranty or guarantee of the accuracy or completeness of information in this document.
[2023-07-26 11:49] LABS: Hemoglobin A1c 5.4 % (3.8-5.6)
[2023-07-26 11:54] LABS: Microalbumin,Random Urine < 5.0 mg/L (NO RANGE EST.)
[2023-07-26 12:12] LABS: PTHIN 55.4 pg/mL (18.4-80.1)
== END | disposition home or self-care (01) ==
LOC: LABSPEC 10:08
PROVIDERS: PCP Student in an Organized Health Care Education/Training Program; Referring Provider Internal Medicine Endocrinology, Diabetes & Metabolism; Visit Provider Internal Medicine Endocrinology, Diabetes & Metabolism
DX: Z13.6 Encounter for screening for cardiovascular disorders (principal); E21.1 Secondary hyperparathyroidism, not elsewhere classified; E55.9 Vitamin D deficiency, unspecified; I10 Essential (primary) hypertension
CPT/HCPCS: 80053; 80061; 82043; 82306; 82570; 83036; 83735; 83970; 85027

== ENCOUNTER → 2024-03-13 | Outpatient (CLI) | payer OTHER, SELFPAY ==
[2024-03-13 12:23] LABS: Hematocrit 41.8 % (37-47); Hemoglobin 13.6 g/dL (12.0-15.0); Mean Corp Hgb Conc 32.5 g/dL (32-36); Mean Corpuscular Hgb 32.8 pg (27.0-32.0); Mean Corpuscular Volume 100.7 fL (81-99); Mean Platelet Vol. 10.1 fl (6.2-12.0); Platelet Count 316 K/mm3 (150-450); RBC Distribution Width CV 12.9 % (11.6-14.6); RBC Distribution Width SD 47.9 fl (35.1-43.9); Red Blood Count 4.15 M/mm3 (4.2-5.4); White Blood Count 9.2 K/mm3 (4.4-11.0)
[2024-03-13 12:39] LABS: Vitamin D,25 Hydroxy 86.4 ng/mL
[2024-03-13 12:45] LABS: PTHIN 48.6 pg/mL (18.4-80.1)
[2024-03-13 13:28] LABS: Protein:Creat Ratio 151 mg/g CRE (0-200)
[2024-03-13 13:41] LABS: ALB/GLOB Ratio 1.1 RATIO (0.9-2.4); AST(SGOT) 16 U/L (15-37); Alanine Aminotransfer ALT/SGPT 24 U/L (13-56); Albumin, Serum 3.7 g/dL (3.2-5.0); Alkaline Phosphatase 115 U/L (45-117); Anion Gap 5 (5-15); BUN 14 mg/dL (7-18); BUN/Creat Ratio 10.7 RATIO (10-20); Calcium,Total 9.7 mg/dL (8.5-10.1); Chloride 102 mmol/L (98-107); Cholesterol 158 mg/dL (200); Creatinine, Serum 1.31 mg/dL (0.55-1.02); EST Glomerular Filtration Rate 43 mL/min (>60); Est Glom Filt Rate - Afr Amer 52 mL/min (>60); Free T3 1.9 pg/mL (2.18-3.98); Globulin 3.5 g/dL (2.2-4.2); Glucose 68 mg/dL (74-106); High Density Lipoprotein 54 mg/dL; Magnesium 2.3 mg/dL (1.6-2.6); Potassium 4.1 mmol/L (3.5-5.1); Protein, Total 7.2 g/dL (6.4-8.2); Sodium Level 135 mmol/L (136-145); Triglycerides 180 mg/dL; Very Low Density Lipoprotein 36 mg/dL (5-40)
[2024-03-13 14:05] LABS: Hemoglobin A1c 5.1 % (3.8-5.6)
[2024-03-14 08:14] LABS: PROGESTERONE 0.9 ng/mL (.)
[2024-03-16 07:07] LABS: DHEA Sulfate 37.2 ug/dL (20.4-186.6)
== END | disposition home or self-care (01) ==
LOC: LABSPEC 11:33
PROVIDERS: PCP Student in an Organized Health Care Education/Training Program; Referring Provider Internal Medicine Endocrinology, Diabetes & Metabolism; Visit Provider Internal Medicine Endocrinology, Diabetes & Metabolism
DX: Z13.6 Encounter for screening for cardiovascular disorders (principal); E21.1 Secondary hyperparathyroidism, not elsewhere classified; E03.8 Other specified hypothyroidism; R53.81 Other malaise; E55.9 Vitamin D deficiency, unspecified; N95.1 Menopausal and female climacteric states; I12.9 Hypertensive chronic kidney disease with stage 1 through stage 4 chronic kidney disease, or unspecified chronic kidney disease; E61.2 Magnesium deficiency; E21.0 Primary hyperparathyroidism
CPT/HCPCS: 80053; 80061; 82306; 82570; 82627; 82670; 83036; 83735; 83970; 84144; 84156; 84403; 84443; 84481; 85027; 86850; 86900; 86901; 82626